=== PATIENT | female | born 1965 | race Caucasian/White ===

== ENCOUNTER 2025-01-05 02:34 | Emergency (ER) | payer BC, SELFPAY ==
[2025-01-05 02:34] VITALS: BP 139/71; PULSE 84; RESP 18; TEMP 36.6; O2SAT 98
--- OUTSIDE RECORDS SUMMARY | 2025-01-05 02:48 | XMS_ITS | Clinical Summary ---
Author Organization [facility] Address [address] [place] [address] Care Team Providers Care Nursery Technician Name Role Phone Yanira Evans MD Primary Care Provider [phone] Allergies Active Allergy Reactions Criticality Noted Date Comments Sulfa (Sulfonamide Antibiotics) Hives 06/26 Medications progesterone (PROMETRIUM) 100 mg capsule 200 mg. 3 Active estradiol 0.075 mg/[address] 1 patch onto the skin 2 times a week. Active Myrbetriq 25 mg tablet TAKE 1 TABLET BY MOUTH ONCE DAILY 90 tablet 3 4 Active SUMAtriptan (IMITREX) 50 mg tablet TAKE 1 TABLET BY MOUTH NEEDED MIGRAINE HEADACHE, MAYREPEAT DOSE IN 2 HOURS IF NO RELIEF 27 tablet 5 Active buPROPion ER, 24 hr, (WELLBUTRIN XL) 300 mg Tablet Sustained Release 24HR TAKE 1 TABLET BY MOUTH ONCE DAILY 30 tablet 11 5 Active ascorbic acid, vitamin C, (Vitamin C) 1,000 mg Tablet 8 Active cholecalciferol (Vitamin D3) 125 mcg (5,000 unit) tablet 4 Active ferrous sulfate (Iron, Ferrous Sulfate,) 325 mg (65 mg iron) Tablet 7 Active famotidine (Pepcid AC Maximum Strength) 20 mg Tablet 4 Active Winlevi 1 % Cream 3 Active magnesium glycinate-mag oxide 120 mg magnesium Capsule 3 Active valACYclovir (VALTREX) 1000 mg Tablet TAKE 2 TABLETS BY MOUTH AT ONSET THEN EVERY 12 HOURS 5 Active Arazlo 0.045 % Lotion 3 Active Active Problems Problem Noted Date Diagnosed Date Anxiety 02/26/2021 Encounters Date Type Department Care Team Description 11/13/2024 3:00 PM PDT Office Visit [facility] [address] [place] [phone] Yanira Evans MD Annual physical exam (Primary Dx) 10/31/2024 1:30 PM PDT Orders Only [facility] [address] [address] [facility], [facility] [address] [place] [address] from Last 3 Months Immunizations Immunization Administration Dates Next Due Influenza Quadrivalent Cell- Based Preservative-Free 01/21/2023 Influenza Quadrivalent Preservative-Free IM 01/13/2022,12/27/2019 Influenza Quadrivalent Recombinant 01/21,02/19/2019,02/19/2019,2017,01/24/2018 Influenza Trivalent Preserva tive-Free IM 12/22/2023 Influenza, Unspecified 01/13/2022,01/21/2021, Tdap 08/30/2018 Zoster Recombinant 07/17/2018, 9,04/05/2018,2017 Social History Tobacco Use Types Packs/Day Years Used Date Smoking Tobacco: Never Smokeless Tobacco: Never Tobacco Cessation:Counseling Given: Not Answered [facility] Utilities Answer Date Recorded In the past 12 months has th e [place], gas, oil, or water [employer] threatened to shut off services in your home? No 11/09/2024 PRAPARE - Transportation Answer Date Re corded In the past 12 months, has l ack of transportation kept you from medical appointments or from getting medications? No 10/24 In the past 12 months, has l ack of transportation kept you from meetings, work, or from getting things needed for daily living? No 11/09/2024 Housing Stability Vital Sign Answer Dwaine e Recorded In the last 12 months, was t here a time when you were not able to pay the mortgage or rent on time? No 11/09/2024 In the past 12 months, how m any times have you moved where you were living? 0 11/09/2024 At any time in the past 12 m [facility], were you homeless or living in a [facility] (including now)? No 11/09/2024 Food Insecurity Answer Date Recorded In the past 12 months, did y ou worry that your food would run out before you got money to buy more? No 11/09/2024 Interpersonal Safety Answer Date Record ed Social Work Risk 56 2023 Comments No Sex and Gender Information Value Date Recorded Sex Assigned at Female 03/09/2022 7:24 AM PST Legal Sex Female 10:50 AM PST Gender Identity Not on file Sexual Orientation Not on file Last Filed Vital Signs Vital Sign Reading Time Taken Comments Blood Pressure 111/61 11/13/2024 2:56 PM PDT Pulse 65 11/13/2024 2:56 PM PDT Temperature 36.7 C (98.1 F) 11/13/2024 2:56 PM PDT Respiratory Rate 18 11/13/2024 2:56 PM PDT Oxygen Saturation 98% 11/13/2024 2:56 PM PDT Inhaled Oxygen Concentration - - Weight 60.3 kg (133 lb) 11/13/2024 2:56 PM PDT Height 162.6 cm (5' 4) 11/13/2024 2:56 PM PDT Body Mass Index 22.83 11/13/2024 2:56 PM PDT Plan of Treatment Upcoming Encounters Date Type Department Care Team (Late st Contact Info) Description 03/12/2025 2:30 PM PST Office Visit [facility] [address] Obstetrics and Gynecology [address] [place] [address] Sultana Leon MD [address] [place], [place] [address] Health Maintenance Due Date Last Done Comments FIT 1965 Fecal Mt-sDNA/Cologuard 1967 Hepatitis B Immunity 1965 Pneumococcal Vaccines (50+ y ears) (1 of 1 - PCV) 2017 Colonoscopy 09/21/2023 09/20/2013, 09/20/2013 Colorectal Cancer Screening 09/21/2023 Influenza Vaccine (#1) 2024 , 01/21/2023, 01/13/2022, Additional history exists Cervical Cancer Screening 12/26/2024 HPV/Cotest 12/26/2024 Pap Smear 12/26/2024 12/27/2019, 06/19/2016 Mammogram 03/03/2025 03/03/2024, 1109/2022, 02/26/2022, Additional history exists ANNUAL WOMEN PREVENTIVE CARE EXAM 11/13/2025 11/13/2024, 06/18/2023, 03/23/2023, Additional history exists DTaP, Tdap, and Td Vaccines (2 - Td or Tdap) 08/30/2028 08/30/2018 OSTEOPOROSIS SCREENING 02/12/2032 03/03/2024 Zoster Vaccines Completed 07/17/2018, 06/25, 04/05/2018, Additional history exists Hepatitis C Screening Completed 02/05/2022 COVID-19 Vaccine Completed 12/22/2023, , 01/13/2022, Additional history exists Depression Screening (Billin dario for this is optional) Completed 11/09/2024 Social Drivers of Health (SDoH) Completed 5 Procedures Procedure Name Priority Date/Time Associated Diagnosis Comments CBC WITH AUTO DIFFERENTIAL, REFLEX MANUAL DIFFERENTIAL IF INDICATED Routine 10/31/2024 1:29 PM PDT Health care maintenance COMPREHENSIVE METABOLIC PANEL Routine 10/31/2024 1:29 PM PDT Health care maintenance HEMOGLOBIN A1C Routine 10/31/2024 1:29 PM PDT Health care maintenance LIPID PANEL Routine 10/31/2024 1:29 PM PDT Health care maintenance SCREENING MAMMO BILAT W/CAD W/BO Routine 03/03/2024 4:13 PM PST Encounter for screening mammogram for breast cancer BONE DENSITY AXIAL Routine 03/03/2024 3: 57 PM PST Osteoporosis screening HEPATITIS C AB W/REFL TO HCV RNA, QN, PCR Routine 02/05/2022 9:08 AM PDT Health care maintenance THINPREP AUTOMATED PAP AND HPV MRNA E6/E7 Routine 12/27/2019 4:27 PM PDT Cervical cancer screening from Last 3 Months or Most Recently Relevant to Health Maintenance Results * (ABNORMAL) LIPID PANEL (10/31/2024 1:29 PM PDT) Cholesterol 210(H) 100 - 199 mg/dL [facility] Triglyceride 43 0 - 149 mg/dL [facility] HDL Cholesterol 84 >39 mg/dL [facility] 1 VLDL Calc 8 5 - 40 mg/dL [facility] 1 LDL Chol Calc 118(H) 0 - 99 mg/dL [facility] 1 Blood BLOOD SPECIMEN / Unknown 10/31/2024 1:29 PM PDT 11/01/2024 Comment:BLOOD Narrative [facility] - 11/01/2024 11:07 AM PDT Performed at: - [facility] [address], [place], [place] [phone] Blood Bank Supervisor: Leandro Nolasco Jr MD, Phone: [phone] us Yanira Evans MD LAB BLOOD Final Result [facility] * HEMOGLOBIN A1C (10/31/2024 1:29 PM PDT) Hgb A1C 5.1 4.8 - 5.6 % [facility] Comment: Prediabetes: 5.7 - 6.4 Diabetes: >6.4 Glycemic control for adults with diabetes: <7.0 Blood BLOOD SPECIMEN / Unknown 10/31/2024 1:29 PM PDT 11/01/2024 Comment:BLOOD Narrative [facility] - 11/01/2024 11:07 AM PDT Performed at: - [facility] [address], [place], [place] [phone] Blood Bank Supervisor: Leandro Nolasco Jr MD, Phone: [phone] us Yanira Evans MD LAB BLOOD Final Result [facility] * COMPREHENSIVE METABOLIC PANEL (10/31/2024 1:29 PM PDT) [facility] Glucose 83 70 - 99 mg/dL [facility] 1 BUN 17 6 - 24 mg/dL [facility] 1 Creatinine 0.92 0.57 - 1.00 mg/dL [facility] 1 eGFR 73 >59 mL/min/1.7 3 [facility] 1 BUN/Creatinine Ratio 18 9 - 23 [facility] 1 NA 136 134 - 144 mmol/L [facility] 1 K 4.7 3.5 - 5.2 mmol/L [facility] 1 CL 100 96 - 106 mmol/L [facility] 1 CO2 25 20 - 29 mmol/L [facility] 1 CA 9.7 8.7 - 10.2 mg/dL [facility] 1 Protein Total 6.7 6.0 - 8.5 g/dL [facility] 1 Albumin 4.5 3.8 - 4.9 g/dL [facility] 1 Globulin 2.2 1.5 - 4.5 g/dL [facility] 1 Bilirubin, Total 0.5 0.0 - 1.2 mg/dL [facility] 1 Alk Phos 61 44 - 121 IU/L [facility] 1 AST (SGOT) 16 0 - 40 IU/L [facility] 1 ALT (SGPT) 15 0 - 32 IU/L [facility] 1 Blood BLOOD SPECIMEN / Unknown 10/31/2024 1:29 PM PDT 11/01/2024 Comment:BLOOD Narrative [facility] - 11/01/2024 11:07 AM PDT Performed at: 01 - [facility] [place] [address], [place], [place] [id number] Blood Bank Supervisor: Leandro Nolasco Jr MD, Phone: [phone] us Yanira Evans MD LAB BLOOD Final Result Performing Organization Address City/[facility]/ZIP Co de Phone Number [facility] * CBC WITH AUTO DIFFERENTIAL, REFLEX MANUAL DIFFERENTIAL IF INDICATED (10/31/2024 1:29 PM PDT) WBC 6.1 3.4 - 10.8 x10E3/uL [facility] 1 RBC 4.39 3.77 - 5.28 x10E6/uL [facility] HGB 13.8 11.1 - 15.9 g/dL [facility] 1 HCT 41.3 34.0 - 46.6 % [facility] 1 MCV 94 79 - 97 fL [facility] 1 MCH 31.4 26.6 - 33.0 pg [facility] 1 MCHC 33.4 31.5 - 35.7 g/dL [facility] 1 RDW 12.2 11.7 - 15.4 % [facility] 1 Platelet 280 150 - 450 x10E3/uL [facility] 1 Neutrophils % 61 Not Estab. % [facility] Lymphocyte % 24 Not Estab. % [facility] Monocytes % 9 Not Estab. % [facility] Eosinophil % 4 Not Estab. % [facility] Basophil % 1 Not Estab. % [facility] 1 Neutrophil Abs 3.8 1.4 - 7.0 x10E3/uL [facility] 1 Lymphocyte Abs 1.5 0.7 - 3.1 x10E3/uL [facility] 1 Monocyte Abs 0.5 0.1 - 0.9 x10E3/uL [facility] 1 Eosinophil Abs 0.2 0.0 - 0.4 x10E3/uL [facility] 1 BASO ABS 0.1 0.0 - 0.2 x10E3/uL [facility] 1 Immature Granulocytes 1 Not Estab. % [facility] 1 Immature Grans (Abs) 0.0 0.0 - 0.1 x10E3/uL [facility] 1 Blood BLOOD SPECIMEN / Unknown 10/31/2024 1:29 PM PDT 11/01/2024 Comment:BLOOD Narrative [facility] - 11/01/2024 11:07 AM PDT Performed at: 01 - [facility] [address], [place], [place] [phone] Blood Bank Supervisor: Leandro Nolasco Jr MD, Phone: [phone] us Yanira Evans MD LAB BLOOD Final Result [facility] * BC MAMMO BILATERAL 3D SCREENING (03/03/2024 4:13 PM PST) Anatomical Region Laterality Modality BREAST Mammography Impressions 03/07/2024 8:06 AM PST There is no mammographic evidence of malignancy. Recommend a screening mammogram in 1 year. ACR BI-RADS Category 1 - Negative. A result letter was sent to the patient by breast center staff. Report Electronically Signed. Dictated by: ALESSANDRA NANCE M.D. At: 03/07/2024 08:01:22 Tap Out Operator: REBECA Henley) (Ana Maria), [facility] Narrative 03/07/2024 8:06 AM PST BILATERAL SCREENING 3D TOMOSYNTHESIS AND 2D C-VIEW MAMMOGRAM DATE OF SERVICE: 03/03/2024 CLINICAL HISTORY: Patient is a 59 year old female who is seen for screening. The patient's lifetime risk for developing breast cancer is estimated using the Tyrer-Cuzick v8 risk assessment model as 5.4%. A risk score of 12% or lower is considered normal risk. COMPARISON: The present examination has been compared to prior imaging studies performed at [facility] on 02/26/2022, 03/09/2022 and 03/01/2023. TECHNIQUE: Digital mammographic images were obtained using a [employer] mammographic system. Views obtained: bilateral craniocaudal with tomosynthesis and mediolateral oblique with tomosynthesis. This study consists of 3D tomosynthesis images along with synthetic 'C-View 2D' or 'Intelligent 2D' images. The exam was interpreted on a specialized workstation with an integrated computer-aided detection (CAD) algorithm applied. MAMMOGRAM FINDINGS: There are scattered areas of fibroglandular density. There are no suspicious masses, malignant type microcalcifications nor areas of unexplained architectural distortion. Procedure Note Alessandra Nance MD - 03/07/2024 BILATERAL SCREENING 3D TOMOSYNTHESIS AND 2D C-VIEW MAMMOGRAM DATE OF SERVICE: 03/03/2024 CLINICAL HISTORY: Patient is a 59 year old female who is seen for screening. The patient's lifetime risk for developing breast cancer is estimatedusing the Tyrer-Cuzick v8 risk assessment model as 5.4%. A risk score of12% or lower is considered normal risk. COMPARISON: The present examination has been compared to prior imaging studiesperformed at [facility] on 02/26/2022,03/09/2022 and 03/01/2023. TECHNIQUE: Digital mammographic images were obtained using a [employer] system. Views obtained: bilateral craniocaudal withtomosynthesis and mediolateral oblique with tomosynthesis. This studyconsists of 3D tomosynthesis images along with synthetic 'C-View 2D' or'Intelligent 2D' images. The exam was interpreted on a specialized workstation with an integratedcomputer-aided detection (CAD) algorithm applied. MAMMOGRAM FINDINGS: There are scattered areas of fibroglandular density. There are no suspicious masses, malignant type microcalcifications norareas of unexplained architectural distortion. IMPRESSION: There is no mammographic evidence of malignancy. Recommend a screening mammogram in 1 year. ACR BI-RADS Category 1 - Negative. A result letter was sent to the patient by breast center staff. Report Electronically Signed. Dictated by: ALESSANDRA NANCE M.D. At: 03/07/2024 08:01:22 Tap Out Operator: REBECA Johnson (R) (M), [facility] Elin Rich MD MG IMG MAMMO PROCEDURE Fin al Result * BC DEXA BONE DENSITY AXIAL (03/03/2024 3:57 PM PST) Anatomical Region Laterality Modality Other Daija Pfieffer REFINERY OPERATOR POLY[employer]ATION PL[employer] BD IMG BONE DENSITY Final Resu lt * HEPATITIS C AB W/REFL TO HCV RNA, QN, PCR (02/05/2022 9:08 AM PDT) Hcv Ab <0.1 0.0 - 0.9 s/co ratio [facility] 1 Blood specimen (specimen) BLOOD SPECIMEN / Unknown 02/05/2022 9:08 AM PDT 02/06/2022 Comment:BLOOD Narrative [facility] - 02/06/2022 10:05 AM PDT Performed at: - [facility] [address], [place], [place] [id number] Blood Bank Supervisor: Cristin Mckeon MD, Phone: [phone] Yanira Evans MD LAB BLOOD Final Result [facility] * THINPREP PAP W FOOD PROCESSING SCIENTIST AND HPV RNA, HIGH RISK, E6/E7, TMA (12/27/2019 4:27 PM PDT) Clinical Information: None given [facility] LMP: NONE GIVEN [facility] Prev. PAP: NONE GIVEN [facility] Prev. Bx: NONE GIVEN [facility] PAP Source: None given [facility] Statement of Adequacy: Satisfactory for evaluation. Endocervical/lechuga sformation zone component absent. [facility] Interpretation/Re sult: Negative for intraepithelial lesion or malignancy. [facility] PAP Comment: This Pap test has been evaluated with computer assisted technology. [employer] Senior Mechanical Development Engineer: EP CT(ASCP) CT Screening location: [address] [address] [facility] PAP (ALWAYS MESSAGE) [employer] Comment: EXPLANATORY NOTE: The Pap is a screening test for cervical cancer. It is not a diagnostic test and is subject to false negative and false positive results. It is most reliable when a satisfactory sample, regularly obtained, is submitted with relevant clinical findings and history, and when the Pap result is evaluated along with historic and current clinical information. HPV RNA, HR E6/E7, TMA Not Detected Not Detected [facility] Comment: This test was performed using the APTIMA HPV Assay ([employer] This assay detects E6/E7 viral messenger RNA (mRNA) from 14 high-risk HPV types (16,18,31,33,35,39,45,51,52,56,58,59,66,68). The analytical performance characteristics of this assay have been determined by [employer]. The modifications have not been cleared or approved by the FDA. This assay has been validated pursuant to the CLIA regulations and is used for clinical purposes. Specimen from genital system (specimen) 12/27/2019 4:27 PM PDT 12/27/2019 10:22 PM PDT us Yanira Evans MD LAB ANATOMIC PATHOLOGY Final Result [facility] ([facility]) [facility] [address] [place] [address] [facility] [address] [place] [address] from Last 3 Months or Most Recently Relevant to Health Maintenance Insurance [facility] Care Teams Nursery Technician Relationship Specialty Start Date End Date Yanira Evans MD [address], [place] [phone] PCP - General Internal Medicine 07/23/16
--- OUTSIDE RECORDS SUMMARY | 2025-01-05 02:48 | XMS_ITS | Encounter Summary ---
Author Organization [facility] Address [address] [place] [address] Care Team Providers Care Computer Repair Instructor Name Role Phone Yanira Evans MD Primary Care Provider [phone] Reason for Visit * Reason Onset Date Comments Medication Refill 07/05/2022 Encounter Details Date Type Department Care Team (Late st Contact Info) Description [facility]/05[facility] [address] [place] [phone] Yanira Evans MD [address], [place] [address] Medication Refill Social History Tobacco Use Types Packs/Day Years Used Date Smoking Tobacco: Never Smokeless Tobacco: Never Comments No Sex and Gender Information Value Date Recorded Sex Assigned at Female 03/09/2022 7:24 AM PST Legal Sex Female 10:50 AM PST Gender Identity Not on file Sexual Orientation Not on file documented as of this encounter Plan of Treatment Upcoming Encounters Date Type Department Care Team (Late st Contact Info) Description 03/12/2025 2:30 PM PST Office Visit [facility] [address] Obstetrics and Gynecology [address] [place] [address] Sultana Leon MD [address] [place], [place] [address] documented as of this encounter Visit Diagnoses Not on filedocumented in this encounter Care Teams Computer Repair Instructor Relationship Specialty Start Date End Date Yanira Evans MD [address] [place] [address] PCP - General Internal Medicine 07/23/16 documented as of this encounter
--- NOTE | 2025-01-05 02:52 | PC.NURSE ---
DR LEWIS AT THE BEDSIDE
--- NOTE | 2025-01-05 03:00 | PC.NURSE ---
STANDBY ASSIST FOR DR LEWIS WHILE HE OPENS WOUND TO LEFT HAND, 3RD DIGIT. THICK YELLOW GREEN DRAINAGE NOTED FROM WOUND. WOUND CULTURE OBTAINED AND TAKEN DOWN TO LAB.
--- NOTE | 2025-01-05 03:02 | ED.SKABFB ---
HPI - Skin/Abscess/Foreign Bdy General Chief complaint: Skin/Abscess/Foreign Body Stated complaint: Skin Problem Source: patient Mode of arrival: ambulatory Limitations: no limitations History of Present Illness HPI narrative: this is a 59-year-old female with no significant past medical history presents with a abscess to the Paranychal area of her left middle finger, which is painful fluctuant with currently no drainage and pain in her finger with no fever chills. MD complaint: abscess/boil Onset (ago): day(s) Tetanus up to date: no Related Data Home Medications ?Medication ?Instructions ?Recorded ?Confirmed ?Last Taken ?Type bupropion HCl 300 mg 24 hr tablet, 300 mg PO DAILY 01/05/25 01/05/25 Unknown History extended release mupirocin 2 % topical ointment 1 applic topical BID 01/05/25 01/05/25 Unknown History (Vu) Allergies Allergy/AdvReac Type Severity Reaction Status Date / Time Sulfa (Sulfonamide Allergy Intermediate Hives Verified 01/05/25 02:38 Antibiotics) Review of Systems Review of Systems: All systems reviewed & are unremarkable except as noted in HPI and below Exam Const: General: healthy appearing Nutritional Appearance: well nourished Orientation/consciousness: patient oriented x3 Limitations: no limitations Neck: Neck: normal visual inspection Chest: Chest palpation & inspection: normal inspection of the chest Resp: Effort & Inspection: normal respiratory effort Auscultation: clear to auscultation bilaterally Cardio: Rate: regular rate GI: Auscultation: normal bowel sounds : General: Yes bladder normal to palpation Skin: Wounds: wounds noted Neuro: General: patient oriented x3, moves all extremities and no meningeal signs Course Course Emergency Course: Finger abscess was lanced and drained cultured triple antibiotic ointment was applied given a dose of p.o. Augmentin and updated with her tetanus. Vital Signs Vital signs: Vital Signs Temperature 36.6 C 01/05/25 02:34 Pulse Rate 84 01/05/25 02:34 Respiratory Rate 18 01/05/25 02:34 Blood Pressure 139/71 01/05/25 02:34 Pulse Oximetry 18 L 01/05/25 02:34 Oxygen Delivery Room Air 01/05/25 02:34 Temperature 36.6 C 01/05/25 02:34 Pulse Rate 84 01/05/25 02:34 Respiratory Rate 18 01/05/25 02:34 Blood Pressure 139/71 01/05/25 02:34 Pulse Oximetry 18 L 01/05/25 02:34 Oxygen Delivery Room Air 01/05/25 02:34 Critical Care Time Critical Care Time Critical Care Time: No Discharge Plan Discharge Clinical Impression: Paronychia Patient Disposition: Home Condition: Stable Instructions: Antibiotic Form, Paronychia (ED) Additional Instructions: advised to take medication as prescribed and to follow with primary care physician if symptoms persist or worsen. Patient Language: Belizean Prescriptions: New amoxicillin-pot clavulanate [Augmentin] 500-125 mg tablet 1 tablet PO TID Qty: 30 0RF mupirocin [Centany] 2 % ointment 1 applic topical TID 7 Days Qty: 15 0RF No Action mupirocin [Centany] 2 % ointment 1 applic topical BID bupropion HCl 300 mg tablet extended release 24 hr 300 mg PO DAILY Follow-up/Referrals: UNKNOWN,DOCTOR [Primary Care Provider] Time of Disposition: 03:06
[2025-01-05] MEDS: TETANUS,DIPHTHERIA,AC PERTUSSIS ADULT 0.5 ML (ADACEL) IM (03:11)
[2025-01-05] MEDS: NEOMYCIN/POLYMYXIN/BACITRACIN OINTMENT PACKET 1 PACKET TOPICAL (03:11)
--- NOTE | 2025-01-05 03:18 | PC.NURSE ---
BACITRACIN TO WOUND ON LEFT HAND, THIRD DIGIT. COVERED WITH BANDAID.
--- NOTE | 2025-01-05 04:00 | PC.NURSE ---
WOKE PATIENT FOR 4AM VITAL SIGNS. PATIENT IS RESTLESS, ROCKING BACK AND FORTH, ANXIOUS IN ROOM. WILL UPDATE ISRAEL LINARES, TECH, OUTSIDE THE ROOM SITTER.
--- NOTE | 2025-01-09 12:42 | PC.NURSE ---
AEROBIC CULTURE FINAL RESULT: ORGANISM HAEMOPHILUS PARAINFLUENZAE. PT PLACED ON AUGMENTIN AT D/C. MD DEIVKA STATES THIS IS PROPER TREATMENT AND THERE IS NO ALTERATION TO TREATMENT MOVING FORWARD.
--- NOTE | 2025-01-10 18:50 | PC.NURSE ---
PRELIMINARY WOUND CULTURE FROM ABSCESS NO COMPLETED FINAL AEROBID CULTURE ORGANISM HAEMOPHILUS PARAINFULENZAE PT SENT HOME ON AUGMENTIN 500/125 TID FOR [address] LAYNE NO FURTHER ORDERS NEEDED
--- NOTE | 2025-01-11 16:43 | PC.NURSE ---
final anaerobic culture results: parvimonas micra moderate growth final aerobice culture results: light growth Haemoophilus parainfluenzae per Dr. Duke no change in tx needed.
== END 2025-01-05 03:29 | disposition home or self-care (01) ==
PROVIDERS: Emergency Provider Emergency Medicine
DX: L03.012 Cellulitis of left finger (principal); Z23 Encounter for immunization
CPT/HCPCS: 87070; 87075; 87205; 90471; 90715; 99283; A9270